=== PATIENT | female | born 1965 | race African-American/Black ===

== ENCOUNTER 2017-11-16 11:13 | Outpatient (CLI) | payer OTHER ==
--- NOTE | 2017-11-17 09:21 | Mammography Report ---
Screening mammogram: Routine views demonstrates an area of focal architectural distortion in the upper hilar left breast. Breast pattern otherwise is generally symmetric and unremarkable anatomy and immediate fibroglandular density. The location of this patient's prior examination in 2012 is not known by the patient or family. CAD used. Impression: Left asymmetry. Recommendation: Additional spot compression imaging of the left breast and ultrasound as needed. BI-RADS CATEGORY: 0 = Needs additional imaging evaluation ACR BI-RADS MAMMOGRAPHIC CODES: 0 = Needs additional imaging evaluation; 1 = Negative; 2 = Benign; 3 = Probably benign; 4 = Suspicious; 5 = Malignant; 6 = Known biopsy-proven malignancy COMMENT: 1. Dense breast tissue, i.e., adenosis, fibrocystic changes, etc., may obscure an underlying neoplasm. 2. Approximately 10% of cancers are not detected with mammography. 3. A negative mammography report should not delay biopsy if a clinically suspicious mass is present.
== END 2017-11-16 11:14 | disposition home or self-care (01) ==
LOC: SPVIMAG 11:13
PROVIDERS: ATTEND Family Medicine
DX: Z12.31 Encounter for screening mammogram for malignant neoplasm of breast (principal)
CPT/HCPCS: 77067

== ENCOUNTER 2018-03-14 10:13 | Outpatient (CLI) | payer OTHER ==
--- NOTE | 2018-03-14 11:55 | Mammography Report ---
LEFT DIGITAL DIAGNOSTIC MAMMOGRAM : 03/14/18 10:13:00 CLINICAL: Recalled for asymmetries. COMPARISON:11/16/17 screening FINDINGS: Spot compression MLO and CC views were obtained and are negative. IMPRESSION: Negative Mammogram. BI-RADS CATEGORY: 1 -- Negative RECOMMENDATION: Routine mammographic screening in one year. ACR BI-RADS MAMMOGRAPHIC CODES: 0 = Needs additional imaging evaluation; 1 = Negative; 2 = Benign; 3 = Probably benign; 4 = Suspicious; 5 = Malignant; 6 = Known biopsy-proven malignancy COMMENT: 1. Dense breast tissue, i.e., adenosis, fibrocystic changes, etc., may obscure an underlying neoplasm. 2. Approximately 10% of cancers are not detected with mammography. 3. A negative mammography report should not delay biopsy if a clinically suspicious mass is present. COMMENT: Patient follow-up letters are generated via our [employer] application.
== END 2018-03-14 10:14 | disposition home or self-care (01) ==
LOC: SPVWC 10:13
PROVIDERS: ATTEND Family Medicine
DX: R92.8 Other abnormal and inconclusive findings on diagnostic imaging of breast (principal)